=== PATIENT | male | born 1990 | race Caucasian/White ===

== ENCOUNTER 2022-06-14 11:02 | Emergency (ER) | payer OTHER ==
[~2022-06-14] VITALS: Ht 175.3 cm; Wt 91.2 kg
[2022-06-14 13:20] VITALS: BP 123/87
--- NOTE | 2022-06-14 22:13 | EKG ---
[facility] [address] [facility] [place] [address] Signed Normal sinus rhythm Normal ECG No previous ECGs available Confirmed by Yousuf Kirby MD () on 06/14/2022 10:13:02 PM Electronically Signed By: YOUSUF KIRBY MD 06/14/222212 PATIENT NAME: SUNSHINE JACKMAN Ashlee Electrocardiogram DATE OF : [birth year] PHYSICIAN: YOUSUF KIRBY MD REPORT #: [id number] REPORT IS CONFIDENTIAL AND NOT TO BE RELEASED WITHOUT AUTHORIZATION
== END 2022-06-14 13:21 | disposition home or self-care (01) ==
LOC: ED 11:02
DX: R07.89 Other chest pain (principal); Z88.2 Allergy status to sulfonamides; Z20.822 Contact with and (suspected) exposure to COVID-19
CPT/HCPCS: 71045; 87502; 93005; 93010; 99285-25; U0003

== ENCOUNTER 2022-12-10 08:12 | Emergency (ER) | payer OTHER ==
[~2022-12-10] VITALS: Ht 175.3 cm; Wt 103.5 kg
[2022-12-10 08:32] VITALS: BP 130/93
== END 2022-12-10 08:30 | disposition home or self-care (01) ==
LOC: ED 08:12
DX: B34.9 Viral infection, unspecified (principal); Z88.2 Allergy status to sulfonamides
CPT/HCPCS: 99282

== ENCOUNTER 2023-10-07 22:37 | Emergency (ER) | payer OTHER ==
[~2023-10-07] VITALS: Ht 175.3 cm; Wt 105.5 kg
[~2023-10-07 22:37] MED LIST: ANUSOL-HC25 MG PR; OMEPRAZOLE20 MG PO
[2023-10-07] MEDS ORDERED: ondansetron HCL 4 MG/2 ML VIAL IV ONE ×2 (23:00→23:15)
[2023-10-07 23:06] LABS: BASOPHILS 1.2 % (0-2); EOSINOPHILS 2.6 % (0-6); HEMATOCRIT 43.7 % (35.0-50.0); HEMOGLOBIN 14.6 g/dL (12.0-18.0); LYMPHOCYTES 29.7 % (24-44); MCH 29.5 (27-36); MCHC 33.3 g/dl (30-36); MCV 88.7 fl (81-99); MONOCYTES 8.6 % (0-12); NEUTROPHILS 57.9 % (39-80); PLATELET COUNT 443 K/uL (140-440); RBC 4.93 M/ul (4.3-5.7); RDW 13.5 (10.5-15.0)
[2023-10-07 23:13] LABS: INR 0.99 (0.80-1.30); PROTIME 12.4 Sec (11.2-14.2)
[2023-10-07] MEDS ORDERED: PANTOPRAZOLE SODIUM 40 MG/10 ML VIAL IV ONE (23:15)
[2023-10-07 23:24] LABS: ALBUMIN 4.1 g/dL (3.4-5.0); ALBUMIN/GLOBULIN RATIO 1.14 (1.1-2.4); ANION GAP 15.6 (7-21); BILIRUBIN, TOTAL 0.4 ng/dL (0.2-1.0); BUN/CREATININE RATIO 17.77 (6.0-28.6); CREATININE, SERUM 0.9 mg/dL (0.70-1.30); POTASSIUM 3.6 mmol/L (3.5-5.1); PROTEIN, TOTAL 7.7 g/dL (6.4-8.2)
[2023-10-08 00:07] LABS: BILIRUBIN, URINE NEGATIVE (negative); BLOOD/HGB, URINE NEGATIVE (Negative); KETONE, URINE NEGATIVE (Negative); LEUK ESTERASE, URINE NEGATIVE (negative); NITRITE, URINE NEGATIVE (negative)
[2023-10-08 00:18] VITALS: BP 133/104
[2023-10-08 00:21] LABS: ABO A; ANTIBODY SCREEN NEGATIVE; RH NEGATIVE
[2023-10-08 00:22] LABS: AMPHETAMINES, URINE NEGATIVE (NEGATIVE); BARBITURATES, URINE NEGATIVE (NEGATIVE); BENZODIAZEPINE, URINE NEGATIVE (NEGATIVE); BUPRENORPHINE, URINE NEGATIVE (NEGATIVE); CANNABINOID, URINE POSITIVE (NEGATIVE); COCAINE, URINE NEGATIVE (NEGATIVE); ECSTASY, URINE NEGATIVE (NEGATIVE); FENTANYL, URINE NEGATIVE (NEGATIVE); METHADONE, URINE NEGATIVE (NEGATIVE); OPIATES, URINE NEGATIVE (NEGATIVE); OXYCODONE, URINE NEGATIVE (NEGATIVE); PHENCYCLIDINE, URINE NEGATIVE (NEGATIVE)
== END 2023-10-08 00:18 | disposition home or self-care (01) ==
LOC: ED 22:37
PROVIDERS: Internal Medicine
DX: K64.8 Other hemorrhoids (principal); K21.9 Gastro-esophageal reflux disease without esophagitis; Z88.2 Allergy status to sulfonamides; Z86.14 Personal history of Methicillin resistant Staphylococcus aureus infection
CPT/HCPCS: 36415; 74177; 80053; 80307; 81003; 83690; 85025; 85610; 86850; 86900; 86901; 96375; 99284-25; J2405; J2470; Q9967

== ENCOUNTER 2024-03-13 11:24 | Emergency (ER) | payer OTHER ==
[~2024-03-13] VITALS: Ht 175.3 cm; Wt 108.0 kg
[2024-03-13 12:06] VITALS: BP 141/92
== END 2024-03-13 12:06 | disposition home or self-care (01) ==
LOC: ED 11:24
DX: M79.604 Pain in right leg (principal); Z88.2 Allergy status to sulfonamides; Z79.899 Other long term (current) drug therapy
CPT/HCPCS: 99283

== ENCOUNTER 2024-05-19 05:55 | Day surgery (SDC) | payer OTHER ==
[2024-05-17 14:55] VITALS: BP 129/88
[~2024-05-19] VITALS: Ht 175.3 cm; Wt 100.0 kg
[~2024-05-19 05:55] MED LIST changes: +MIDAZOLAM HCL 5 MG/5 ML VIAL IV PRN; +MULTI VITAMIN1 EACH PO; +fentaNYL citrate 100 MCG/2 ML VIAL IV PRN
[2024-05-19 06:01] VITALS: BP 130/75
[2024-05-19] MEDS ORDERED: propofoL 200 MG/20 ML VIAL ONE (06:43)
[2024-05-19] MEDS ORDERED: LIDOCAINE HCL 1% 5 ML SDV INJ ONE (07:00)
[2024-05-19] MEDS ORDERED: LACTATED RINGER'S 1,000 ML IV SCH (07:00)
[2024-05-19] MEDS ORDERED: IBLOOD GLUCOSE TEST STRIP 1 EA TEST VI PRN (07:00)
--- NOTE | 2024-05-19 07:40 | NUR ---
PT NOT AVAILABLE FOR VISIT. VISITED WITH IN ROOM. NO IMMEDIATE NEEDS. BAND STRAIGHTENER PROVIDED SUPPORTIVE PRESENCE, HOSPITALITY, PRAYER, FACILITATED INTERACTION WITH THERAPY ANIMAL.
[2024-05-19] MEDS ORDERED: LACTATED RINGER'S 1,000 ML IV ONE (07:43)
--- NOTE | 2024-05-19 08:23 | NUR ---
05/19/24 0823 Hayley Clark 0808-PATIENT ARRIVED TO PACU ON 10L MASK NONAROUSABLE ORAL AIRWAY IN PLACE LAYING LEFT LATERAL. PATIENT PLACED ON 6L MASK 100% PATIENT COUGHING PASSING GAS. 0813-PATIENT COUGHING AROUSING TO VERBAL STIMULI OPENS MOUTH ON COMMAND ORAL AIRWAY REMOVED. 6L MASK RR EVEN 100% PASSING GAS 0815-PATIENT DROWSY WANTING MASK REMOVED PLACED ON RA 100% RR EVEN. HOB ELEVATED ORIENTED TO PACU DENIES PAIN OR NAUSEA. 0820-PATIENT AWAKE DROWSY DENIES PAIN OR NAUSEA. RA 96% RR EVEN. PATIENT DRINKING JUICE.
[2024-05-19 08:50] VITALS: BP 131/92
--- NOTE | 2024-05-21 08:11 | OR ---
[facility] [address] [place], [place] [address] Signed DATE OF OPERATION: 05/19/2024 SURGEON: Flori Doran MD PREOPERATIVE DIAGNOSES: 1. Heartburn. 2. Episode of constipation with bowel movement and guaiac positive in September 2023. 3. Father with Crohn disease, age 35. 4. Paternal uncle with celiac sprue. POSTOPERATIVE DIAGNOSES: 1. Tiny hiatal hernia. 2. GE junction at 35 cm. 3. Minimal distal esophagitis. 4. 6 mm polyp at 8 cm in rectum. 5. Minimal sigmoid diverticulosis. 6. Minimal to moderate internal hemorrhoids. PROCEDURES: 1. EGD with CLOtest and biopsies of the duodenum, antrum, and distal esophagus. 2. Colonoscopy with snare polypectomy and hot biopsy. ESTIMATED BLOOD LOSS: None. INDICATIONS: Zhen is a 34-year-old obese gentleman asked to see me for both upper and lower endoscopy. He comes to us from [facility]. He said his mom and dad still live back in that area. His father was diagnosed with Crohn's disease about age 35. Zhen now works for the [employer] in [place], [place]. He said he was constipated. I believe was November of last year and ended up with a bloody bowel movement. He went to the local emergency room and was found to have guaiac-positive stool on digital rectal exam. He was also having some heartburn. He was asked to take Protonix. He had a CT scan of abdomen and pelvis, which was unremarkable. In addition, his paternal uncle has celiac sprue. He tells me his mother actually has Licking's disease. Zhen was asked to see me for both upper and lower endoscopy. He said he quit taking the Protonix. He also quit smoking and quit all the caffeinated drinks and has gained quite a bit of weight. However, his stomach feels much better. To his knowledge, there is no family history of colon cancer or polyps. In the office, I gave him a pamphlet on upper and lower endoscopy. We reviewed the nature of the two tests. Electronically Signed By: FLORI DORAN MD 05/21/24 0811 PATIENT NAME: ZHEN JACKMAN OPERATIVE REPORT DATE OF : [birth year] REPORT #: [id number] PHYSICIAN: FLORI DORAN MD PCP: FARIHA KAHN MD REPORT IS CONFIDENTIAL AND NOT TO BE RELEASED WITHOUT AUTHORIZATION [facility] [address] [place] [id number] Signed There is risk including, but not limited to gas bloating, crampy abdominal pain, bleeding, perforation requiring surgery, and missed diagnosis. We also reviewed the written instructions for our bowel prep line by line. He is also using marijuana on a daily basis. Consequently, we asked for monitored anesthesia care propofol infusion. That worked out well today. He understands an adult person has to take him home afterwards. He had expressed understanding, wished to proceed. PROCEDURE NOTE: Zhen was taken into our endoscopy suite and placed in the supine semi-recumbent position. He was given monitored anesthesia care propofol infusion per our nurse lieutenant firefighter. A bite block was utilized for the case. The adult gastroscope was introduced and advanced under direct visualization of the camera without difficulty. The duodenum and pyloric channel were unremarkable. We went and took a biopsy of the duodenum because of the family history of Crohn disease as well as celiac sprue. We saw no ulcerations in the pyloric bulb or the antrum. We went and took a biopsy out of his antrum for pathologic review as well as CLOtest. Upon retroflexion of scope, he has what looks like just a tiny sliding-type hiatal hernia. The scope was withdrawn up through the area of the GE junction, which was compliant without stricture. There was no gastric or esophageal varices. He has a little irritation around the hiatal hernia and the Z-line. The Z-line is not particularly disrupted. It rests at 35 cm from his incisors. No Dorsey's mucosa. He did have one streak of distal esophagitis. We went and took a biopsy over that area. The middle and upper esophagus were unremarkable. After this, the gas was suctioned out and the gastroscope removed. Zhen tolerated upper endoscopy quite well. Zhen was rotated into the left lateral decubitus position. He was maintained on propofol infusion per our nurse lieutenant firefighter. A digital rectal exam was performed. He prior has just a small amount of external hemorrhoid tissue. A good sphincter tone. There were no masses. The adult colonoscope was introduced and advanced all around into the cecum under direct visualization of camera without difficulty. His prep was quite excellent. The scope was slowly withdrawn. We could easily see the appendiceal orifice and the ileocecal valve. We took several pictures throughout. He did have some diverticula in the sigmoid colon. They were moderate in size, few in number and scattered about. Once in the rectum, we saw a 6 mm polyp at 8 cm. We divided that with the help of hot biopsy forceps and snare. Upon retroflexion of scope, he does have minimal to moderate internal hemorrhoid columns. After this, the gas was suctioned out. The colonoscope removed. Zhen tolerated the procedure quite well. RECOMMENDATIONS: I will see Zhen back in my office in 7 to 14 days to review his results. I suspect he is doing quite well. Electronically Signed By: FLORI DORAN MD 05/21/24 0811 PATIENT NAME: ZHEN JACKMAN OPERATIVE REPORT DATE OF : [birth year] REPORT #: [id number] PHYSICIAN: FLORI DORAN MD PCP: FARIHA KAHN MD REPORT IS CONFIDENTIAL AND NOT TO BE RELEASED WITHOUT AUTHORIZATION [address] [address] Signed Flori Doran MD [facility] /[id number] cc: MD Dr. Fariha Murray Copies: FLORI DORAN MD ~ Electronically Signed By: FLORI DORAN MD 05/21/24 0811 PATIENT NAME: ZHEN JACKMAN OPERATIVE REPORT DATE OF : [birth year] REPORT #: [id number] PHYSICIAN: FLORI DORAN MD PCP: FARIHA KAHN MD REPORT IS CONFIDENTIAL AND NOT TO BE RELEASED WITHOUT AUTHORIZATION
--- NOTE | 2024-05-23 08:47 | PATH ---
[facility] [address] [place], [place] [address] Signed SPECIMEN(S): A DUODENAL BIOPSY SPECIMEN(S): B ANTRUM/PYLORUS BIOPSY SPECIMEN(S): C LOWER ESOPHAGEAL BIOPSY SPECIMEN(S): D RECTAL POLYP AT 8 CM SPECIMEN SOURCE: A. DUODENAL BIOPSY B. ANTRUM/PYLORUS BIOPSY C. LOWER ESOPHAGEAL BIOPSY D. RECTAL POLYP AT 8 CM CLINICAL HISTORY: Heartburn, constipation, rectal bleeding, guaiac positive stool, family history of Crohn's, family history of celiac. Postop: "5M ", hiatal hernia, minimal distal esophagitis, rectal polyp, internal hemorrhoids, diverticulosis. FINAL PATHOLOGIC DIAGNOSIS: A. Duodenum, biopsy: - Duodenal mucosa with no significant pathologic changes B. 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 Esophagus, lower, biopsy: - Esophageal squamous mucosa with reactive epithelial changes D. Rectum, 8 cm, polypectomy: - Hyperplastic polyp BRP MICROSCOPIC EXAMINATION: Histologic sections of all submitted blocks are examined by light microscopy. These findings, together with the gross examination, support the pathologic diagnosis. GROSS DESCRIPTION: A. The specimen, labeled and designated "Secore, T, duodenal biopsy," is received in formalin and consists of one mansfield soft tissue fragment, 0.4 cm. Entirely submitted in (A1). B. The specimen, labeled and designated "Secore, T, antrum/pylorus biopsy," is received in formalin and consists of one mansfield soft tissue fragment, 0.5 cm. Entirely submitted in (B1). PATIENT NAME: SUNSHINE JACKMAN PATHOLOGY DATE OF : [birth year] REPORT #: [id number] PHYSICIAN: ROSA ISELA PATHOLOGY PCP: DIANNE KAHN MD REPORT IS CONFIDENTIAL AND NOT TO BE RELEASED WITHOUT AUTHORIZATION [facility] [address] [place], [place] [address] Signed C. The specimen, labeled and designated "Zhanna, T, lower esophageal biopsy," is received in formalin and consists of two mansfield soft tissue fragments, ranging from 0.2-0.3 cm. Entirely submitted in (C1). D. The specimen, labeled and designated "Arethaore, T, rectal polyp at 8 cm," is received in formalin and consists of five mansfield soft tissue fragments, ranging from 0.2 -0.7 cm. Entirely submitted in (D1). AB (under the direct supervision of a pathologist) The Gross Description was prepared using a voice recognition system. The report was reviewed for accuracy; however, sound-alike word errors, addition and/or deletions may occur. If there is any question about this report, please contact Client Services. ADDITIONAL NOTES: Immunohistochemical and/or in situ hybridization studies if performed in this case included appropriate positive controls that reacted as expected. This test was developed and its performance characteristics determined by [facility]. It has not been cleared or approved by the U.S. Food and Drug Administration. The FDA has determined that such clearance or approval is not necessary. This test is used for clinical purposes. It should not be regarded as investigational or for research. [facility] is certified under the Clinical Laboratory Improvement Amendments of 1988 (CLIA) as qualified to perform high complexity clinical laboratory testing. PERFORMING LABORATORY: Technical component was performed by [facility], [address] [place] [id number] (CLIA# [id number]). Professional interpretation was performed by [facility], [address] [place] [id number] (CLIA#: [id number]). Diagnostician: Silas Martino MD Pathologist Electronically Signed 05/23/2024 Copies: ~ PATIENT NAME: SUNSHINE JACKMAN PATHOLOGY DATE OF : [birth year] REPORT #: [id number] PHYSICIAN: ROSA ISELA PATHOLOGY PCP: DIANNE KAHN MD REPORT IS CONFIDENTIAL AND NOT TO BE RELEASED WITHOUT AUTHORIZATION
== END 2024-05-19 08:50 | disposition home or self-care (01) ==
LOC: DS 05:55
PROVIDERS: ATTEND Colon & Rectal Surgery
PROC: 0DB38ZX Excision of Lower Esophagus, Via Natural or Artificial Opening Endoscopic, Diagnostic (ICD-10-PCS; 2024-05-19)
PROC: 0DBP8ZZ Excision of Rectum, Via Natural or Artificial Opening Endoscopic (ICD-10-PCS; 2024-05-19)
PROC: 0DB98ZX Excision of Duodenum, Via Natural or Artificial Opening Endoscopic, Diagnostic (ICD-10-PCS; principal; 2024-05-19 07:30)
PROC: 0DB68ZX Excision of Stomach, Via Natural or Artificial Opening Endoscopic, Diagnostic (ICD-10-PCS; 2024-05-19 07:30)
DX: K29.50 Unspecified chronic gastritis without bleeding (principal); B96.81 Helicobacter pylori [H. pylori] as the cause of diseases classified elsewhere; K20.90 Esophagitis, unspecified without bleeding; K44.9 Diaphragmatic hernia without obstruction or gangrene; K62.1 Rectal polyp; K57.30 Diverticulosis of large intestine without perforation or abscess without bleeding; K64.8 Other hemorrhoids; E66.9 Obesity, unspecified; F12.10 Cannabis abuse, uncomplicated; Z88.2 Allergy status to sulfonamides; Z79.899 Other long term (current) drug therapy; Z83.79 Family history of other diseases of the digestive system; Z68.34 Body mass index [BMI] 34.0-34.9, adult
CPT/HCPCS: 00813; 36415; 87077; J2704; J7121